=== PATIENT | female | born 1955 | race Caucasian/White ===

== ENCOUNTER → 2020-07-30 | Day surgery (SDC) | payer BC ==
[~2020-07-30] MED LIST: Lactated Ringers 1,000 ML IV SCH
[2020-07-30 09:05] VITALS: BP 125/70; PULSE 67
--- NOTE | 2020-07-30 13:49 | OR ---
DATE OF OPERATION: 07/30/2020 PREOPERATIVE DIAGNOSIS: ONGOING DIARRHEA. POSTOPERATIVE DIAGNOSIS: ONGOING DIARRHEA. SURGEON: Carlyle Llamas MD PROCEDURE: DIAGNOSTIC COLONOSCOPY WITH RANDOM BIOPSIES X5. ANESTHESIA: MAC. COMPLICATIONS: None. SPECIMEN: Random biopsies from terminal ileum to rectum x5. FINDINGS: 1. Full-length colonoscopy. 2. Minimal sigmoid diverticulosis. 3. No obvious etiology of patient's diarrhea. RECOMMENDATIONS: Follow up closely with Candie Hart for path reports. INDICATIONS: The patient has been having ongoing diarrhea for 4 months. Candie sent her for diagnostic colonoscopy. DESCRIPTION OF PROCEDURE: The patient was prepped and draped, placed in the left lateral decubitus position. A lubricated Olympus colonoscope was inserted and easily advanced to the cecum. We were able to intubate into the terminal ileum which was normal. We did biopsy that area. The bowel prep was excellent. Upon withdrawal, random biopsies were taken including the terminal ileum all the way to the rectal vault numbering 5. I could find no signs of any polyps, masses, ulceration, or bleeding sites. No vascular abnormalities or signs of colitis. There were a few scattered diverticula in the sigmoid area, but very minimal. The rectal vault was benign. Retroflexion showed no perianal lesions. Air was suctioned, scope removed without complication. STARR/MARIA E /[id number]
== END ==
LOC: CC.SDS 06:23
PROVIDERS: ATTEND Family Medicine
DX: K57.30 Diverticulosis of large intestine without perforation or abscess without bleeding (principal); E11.40 Type 2 diabetes mellitus with diabetic neuropathy, unspecified; E78.5 Hyperlipidemia, unspecified; E66.9 Obesity, unspecified; Z68.31 Body mass index [BMI] 31.0-31.9, adult; Z88.2 Allergy status to sulfonamides; Z88.8 Allergy status to other drugs, medicaments and biological substances; Z79.899 Other long term (current) drug therapy; Z87.891 Personal history of nicotine dependence; Z98.890 Other specified postprocedural states
CPT/HCPCS: 00811; 45380; J7120

== ENCOUNTER 2025-02-23 16:58 | Observation (INO) | payer BC ==
[2025-02-23] MEDS ORDERED: Ondansetron 4 MG Tab.DIS PO PRN (18:00)
[2025-02-23] MEDS ORDERED: Ondansetron 4 MG/2 ML SDV IV PRN (18:00)
[2025-02-23] MEDS: glipiZIDE 5 MG Tab.ER PO SCH (19:31)
[2025-02-24 07:15] LABS: BASOPHILS ABSOLUTE AUTO 0.01 10^3/uL (0.00-0.50); BASOPHILS PERCENT AUTO 0.2 % (0-1); EOSINOPHILS ABSOLUTE AUTO 0.08 10^3/uL (0.00-1.50); EOSINOPHILS PERCENT AUTO 1.3 % (0-6); IMMATURE GRAN ABSOLUTE AUTO 0.00 10^3/uL (0.00-0.49); IMMATURE GRAN PERCENT AUTO 0.0 % (0.0-4.9); LYMPHOCYTES ABSOLUTE AUTO 1.57 10^3/uL (0.60-5.00); LYMPHOCYTES PERCENT AUTO 26.2 % (24-44); MONOCYTES ABSOLUTE AUTO 0.41 10^3/uL (0.00-1.50); MONOCYTES PERCENT AUTO 6.8 % (0-10); NEUTROPHILS ABSOLUTE AUTO 3.93 x10^3/uL (1.80-8.00); NEUTROPHILS PERCENT AUTO 65.5 % (41-71); PLATELET COUNT,PLT 247 10^3/uL (150-400); RED BLOOD CELL COUNT 4.14 x10^6/uL (4.00-5.50); WHITE BLOOD CELL COUNT,WBC 6.0 10^3/uL (4.0-11.0)
[2025-02-24 07:30] VITALS: BP 165/58
[2025-02-24 07:36] LABS: ALANINE AMINOTRANSFERASE,ALT 37.0 U/L (12-78); ASPARTATE AMNIOTRANSFERASE,AST 29.0 U/L (15-37); BILIRUBIN TOTAL 0.5 mg/dL (0.0-1.0); BLOOD UREA NITROGEN,BUN 17.0 mg/dL (7-18); CARBON DIOXIDE,CO2 28.0 mmol/L (21-32); CHLORIDE,CL 104.0 mEq/L (98-106); CREATININE 0.8 mg/dL (0.6-1.0); EST CRCL DRUG DOSING (CG) 57.31 mL/min; POTASSIUM,K 4.7 mEq/L (3.5-5.0); PROTEIN TOTAL,TP 7.3 g/dL (6.4-8.2); SODIUM,NA 142.0 mEq/L (136-145)
[2025-02-24 07:45] LABS: ESTIMATED GFR 80.0 mL/min (>=60); GLUCOSE RANDOM 39.0 mg/dL (75-99)
[2025-02-24 08:16] VITALS: PULSE 71
== END 2025-02-24 10:51 | disposition home or self-care (01) ==
LOC: UNDOADMOB 16:58 → CC.MS 16:58
PROVIDERS: ADMIT Nurse Practitioner; ATTEND Nurse Practitioner
DX: G45.4 Transient global amnesia (principal); I10 Essential (primary) hypertension; E11.9 Type 2 diabetes mellitus without complications; Z88.1 Allergy status to other antibiotic agents; Z88.5 Allergy status to narcotic agent; Z79.899 Other long term (current) drug therapy
CPT/HCPCS: 36415; 80053; 82533; 82947; 83735; 85025; A9270; J0696; 96374; G0378